=== PATIENT | male | born 1965 ===

== ENCOUNTER 2017-06-19 07:38 | Outpatient (CLI) | payer OTHER ==
[~2017-06-19 07:38] MED LIST: MICARDIS40 MG
== END 2017-06-19 08:57 | disposition home or self-care (01) ==
LOC: LAB 07:38
DX: I10 Essential (primary) hypertension (principal)

== ENCOUNTER 2017-11-08 07:30 | Outpatient (CLI) | payer OTHER | END 2017-11-08 07:39 | disposition home or self-care (01) | LOC: LAB 07:30 | DX: I10 Essential (primary) hypertension (principal) ==

== ENCOUNTER 2018-05-12 07:30 | Outpatient (CLI) | payer OTHER | END 2018-05-12 07:54 | disposition home or self-care (01) | LOC: LAB 07:30 | DX: I10 Essential (primary) hypertension (principal); E78.00 Pure hypercholesterolemia, unspecified ==

== ENCOUNTER 2018-09-26 07:54 | Outpatient (CLI) | payer OTHER | END 2018-09-26 08:08 | disposition home or self-care (01) | LOC: LAB 07:54 | DX: R73.03 Prediabetes (principal); E78.00 Pure hypercholesterolemia, unspecified; I10 Essential (primary) hypertension ==

== ENCOUNTER 2019-02-23 09:40 | Outpatient (CLI) | payer OTHER | END 2019-02-23 09:50 | disposition home or self-care (01) | LOC: LAB 09:40 | DX: I10 Essential (primary) hypertension (principal); E78.00 Pure hypercholesterolemia, unspecified ==

== ENCOUNTER 2019-06-24 07:10 | Outpatient (CLI) | payer OTHER | END 2019-06-24 07:24 | disposition home or self-care (01) | LOC: LAB 07:10 | DX: E78.00 Pure hypercholesterolemia, unspecified (principal); I10 Essential (primary) hypertension ==

== ENCOUNTER 2021-06-10 11:52 | Emergency (ER) | payer OTHER ==
[~2021-06-10] VITALS: Ht 177.8 cm; Wt 93.0 kg
[2021-06-10] MEDS ORDERED: ATORVASTATIN CA20 MG PO (11:58)
[2021-06-10] MEDS ORDERED: TAMS0.4C PO (16:27)
[2021-06-10] MEDS ORDERED: ULTRAM50 MG PO (16:30)
== END 2021-06-10 16:38 | disposition home or self-care (01) ==
LOC: ER 11:52
DX: N20.0 Calculus of kidney (principal); I10 Essential (primary) hypertension